=== PATIENT | female | born 1970 | race Two or more races ===

== ENCOUNTER 2019-01-03 05:03 | Inpatient (IN) | payer OTHER ==
[~2019-01-03] VITALS: Ht 170.2 cm; Wt 122.9 kg
--- NOTE | 2019-01-03 05:10 | NUR ---
MS/RN NOTES PT. ARRIVED FROM HOME FOR DAYSURGERY. PT. IS AMBULATORY, AWAKE, ALERT AND ORIENTED X4. BREATHING EVEN AND UNLABORED ON ROOM AIR. NO SOB, RESPIRATORY DISTRESS OR COMPLAINTS OF PAIN NOTED AT THIS TIME. ORIENTED PT. TO ROOM. PT. VITAL SIGNS STABLE. PT. CONSENT FOR PROCEDURE, ANESTHESIA AND BLOOD TRANSFUSION SIGNED AND PLACED IN PT. CHART. PT. CHECKLIST COMPLETED AND PLACED IN PT. CHART. INSERTED IV ACCESS IN PT. RIGHT FOREARM 22 GAUGE IV SALINE LOCK. BED LOCKED AND IN LOWEST POSITION, SIDE RAILS UP X2, CALL LIGHT WITHIN REACH, WILL CONTINUE TO MONITOR.
--- NOTE | 2019-01-03 07:05 | NUR ---
MS/RN NOTES PT. IS LYING IN BED, AWAKE, ALERT AND ORIENTED X4. BREATHING EVEN AND UNLABORED ON ROOM AIR. NO SOB, RESPIRATORY DISTRESS OR COMPLAINTS OF PAIN NOTED AT THIS TIME. PT. AWAITING PICKUP FOR SURGERY. ALL PT. NEEDS MET. BED LOCKED AND IN LOWEST POSITION, SIDE RAILS UP X2, CALL LIGHT WITHIN REACH, WILL ENDORSE TO DAYSHIFT NURSE FOR CONTINUITY OF CARE.
--- NOTE | 2019-01-03 07:10 | NUR ---
MS RN OPENING NOTES Received Patient awake and resting in bed. A/O x 4. VS stable with no acute distress. Breathing even and unlabored on room air with no respiratory distress. Denies pain at this time. 22g PIV on RFA clean, dry, intact and flushing well. Safety precautions in place. Bed locked and set to lowest position with side rails x 2 up. All needs rendered at this time. Family at bedside. Call light within reach. Awaiting pickup for surgery. All consents signed and placed in chart. Will continue to monitor.
--- NOTE | 2019-01-03 07:35 | NUR ---
MS RN NOTES Patient picked up for surgery at this time. Patient in stable condition. Will continue to monitor.
[2019-01-03] MEDS ORDERED: HYDROMORPHONE INJ 2 MG/ML DISP.SYRIN ONE ×2 (07:52→09:42)
[2019-01-03] MEDS ORDERED: MIDAZOLAM HCL 2 MG/2ML VIAL ONE (07:52)
[2019-01-03] MEDS ORDERED: SUCCINYLCHOLINE CHLORIDE 20 MG/ML VIAL ONE (07:55)
[2019-01-03] MEDS ORDERED: ROCURONIUM BROMIDE 50 MG/5 ML ONE (07:55)
[2019-01-03] MEDS ORDERED: ANESTHESIA TRAY IN PYXIS 1 EA TRAY MC ONE (07:59)
[2019-01-03 08:00] VITALS: BP 99/60
[2019-01-03] MEDS ORDERED: QUETIAPINE FUMARATE 100 MG TABLET PO SCH (09:00)
[2019-01-03] MEDS ORDERED: LIDOCAINE HCL/MPF 1% 30 ML VIAL IJ ONE (09:05)
--- NOTE | 2019-01-03 10:28 | NUR ---
MS RN NOTES Patient returned from surgery at this time. Bandage and Brace on LEFT KNEE clean and in place. Facial grimacing noted upon movement of LEFT KNEE. Patient states pain level of 10/10. Will intervene as ordered. Provided comfort measures. Applied Ice Pack on LEFT KNEE. Elevated LLE. Family at bedside. Will continue to monitor.
[2019-01-03] MEDS ORDERED: HYDROCODONE/APAP 5/325MG 1 EACH TABLET PO PRN ×2 (11:00)
[2019-01-03] MEDS ORDERED: diphenhydrAMINE HCL ELIX 25 MG/10 ML UDC PO PRN (12:00)
[2019-01-03] MEDS ORDERED: TOPI50TA PO (12:33)
[2019-01-03] MEDS ORDERED: ASCO500W7 PO (12:33)
[2019-01-03] MEDS ORDERED: LISI40TA4 PO (12:33)
[2019-01-03] MEDS ORDERED: ACET-907 PO (12:33)
[2019-01-03] MEDS ORDERED: CITA20TA19 PO (12:33)
[2019-01-03] MEDS ORDERED: LACT20SO4 PO (12:33)
[2019-01-03] MEDS ORDERED: GABA-534 PO (12:33)
[2019-01-03] MEDS ORDERED: LORA1TAB PO (12:33)
[2019-01-03] MEDS ORDERED: OMEG1CAP PO (12:33)
[2019-01-03] MEDS ORDERED: BUPR300T52 PO (12:33)
[2019-01-03] MEDS ORDERED: PANT40TA2 PO (12:33)
[2019-01-03] MEDS ORDERED: QUET200T PO (12:33)
[2019-01-03] MEDS ORDERED: FURO-144 PO (12:33)
[2019-01-03] MEDS ORDERED: LORAZEPAM 1 MG TABLET PO PRN (15:00)
[2019-01-03] MEDS ORDERED: LACTULOSE 10 G/15 ML UDC (PYXIS) PO PRN (15:30)
--- NOTE | 2019-01-03 16:11 | NUR ---
MS BEADER NOTES Patient discharged for home at this time. A/O x 4. VS stable with no acute distress. Breathing even and unlabored on room air with no respiratory distress. Patient states pain level of 10/10 on LEFT KNEE. Administered [place] 5-325mg x 2 tabs at 1151. Upon reassessment noted Patient eating lunch and talking with family. Administered [place] 5-325mg x 1 tab at 1452, per Patient ineffective. Per Patient request, Patient wants to go home now. Patient states, that she will feel better when she gets home and relaxes. LEFT KNEE INCISION wrapped in bandages and brace, otherwise skin intact. Unable to obtain skin assessment pictures. Medication reconciliation and discharge orders reviewed and explained to Patient. Patient verbalized understanding. All belongings with Patient. Patient will follow up with Barbara ALEXANDRA in 7 days. Escorted Patient to the Lobby for safety. Patient picked up by Daina, sister and .
[2019-01-03] MEDS ORDERED: GABAPENTIN 300 MG CAPSULE PO SCH (17:00)
[2019-01-03] MEDS ORDERED: BUPROPION XL 150 MG TAB.ER.24 PO SCH (22:00)
[2019-01-03] MEDS ORDERED: TOPIRAMATE 25 MG TABLET PO SCH (22:00)
[2019-01-04] MEDS ORDERED: ASCORBIC ACID 500 MG TABLET PO SCH (09:00)
[2019-01-04] MEDS ORDERED: CITALOPRAM HYDROBROMIDE 20 MG TABLET PO SCH (09:00)
[2019-01-04] MEDS ORDERED: LISINOPRIL (20MG) 20 MG TABLET PO SCH (09:00)
[2019-01-04] MEDS ORDERED: PANTOPRAZOLE 40 MG TABLET.DR PO SCH (09:00)
[2019-01-04] MEDS ORDERED: Medication Not On Formulary EA (Omega-3 Fatty Acids/Fish Oil (Fish Oil 1,000 Mg Capsule) PO SCH (09:00)
[2019-01-04] MEDS ORDERED: FUROSEMIDE 40 MG TABLET PO SCH (09:00)
== END 2019-01-03 16:08 | disposition home or self-care (01) | DRG 313 ==
LOC: DS 05:03 → MED 05:04
PROVIDERS: ADMIT Internal Medicine; ATTEND Internal Medicine
PROC: 0SBD4ZZ Excision of Left Knee Joint, Percutaneous Endoscopic Approach (ICD-10-PCS; principal; 2019-01-03)
DX: M17.12 Unilateral primary osteoarthritis, left knee (principal); G62.9 Polyneuropathy, unspecified; E66.9 Obesity, unspecified; M25.562 Pain in left knee; G89.29 Other chronic pain; I10 Essential (primary) hypertension; Z88.1 Allergy status to other antibiotic agents; Z88.5 Allergy status to narcotic agent; Z88.0 Allergy status to penicillin; M22.42 Chondromalacia patellae, left knee; S83.242A Other tear of medial meniscus, current injury, left knee, initial encounter; X58.XXXA Exposure to other specified factors, initial encounter; Y92.9 Unspecified place or not applicable; M65.9 Synovitis and tenosynovitis, unspecified
CPT/HCPCS: 36415; 82962-TC; 86850-TC; A4217; G0378; J0330; J0690; J1100; J1170; J1200; J2250; J2704; J3490; Q0163